=== PATIENT | female | born 1965 | race American Indian/Alaskan Native ===

== ENCOUNTER 2019-09-05 23:15 | Emergency (ER) | payer SELFPAY | END 2019-09-06 01:26 | disposition left against medical advice (07) | LOC: ED 23:15 | DX: R10.9 Unspecified abdominal pain (principal); Z53.21 Procedure and treatment not carried out due to patient leaving prior to being seen by health care provider ==

== ENCOUNTER 2019-09-06 02:02 | Emergency (ER) | payer SELFPAY ==
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
[2019-09-08 12:22] VITALS: BP 143/105
== END 2019-09-06 03:34 | disposition home or self-care (01) ==
LOC: ED 02:02
DX: M54.5 Low back pain (principal); M54.2 Cervicalgia; G89.29 Other chronic pain; F20.9 Schizophrenia, unspecified; J44.9 Chronic obstructive pulmonary disease, unspecified; F12.10 Cannabis abuse, uncomplicated; F14.10 Cocaine abuse, uncomplicated; F17.200 Nicotine dependence, unspecified, uncomplicated; F19.10 Other psychoactive substance abuse, uncomplicated; Z79.899 Other long term (current) drug therapy
CPT/HCPCS: 99282